=== PATIENT | male | born 1970 | race Caucasian/White ===

== ENCOUNTER 2017-09-06 16:49 | Emergency (ER) | payer OTHER ==
[2017-09-06] MEDS ORDERED: Morphine 4 MG/ML Syringe IM ONE (17:17)
[2017-09-06] MEDS ORDERED: Diphtheria,Pertussis(Acell),Tetanus Vaccine 0.5 ML Syringe IM ONE (17:17)
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
[2017-09-06] MEDS ORDERED: Silver Sulfadiazine 1% Crm 400 GM Jar TOP ONE (17:27)
== END 2017-09-06 18:22 | disposition home or self-care (01) ==
LOC: MW.ED 16:49
DX: T22.211A Burn of second degree of right forearm, initial encounter (principal); T21.23XA Burn of second degree of upper back, initial encounter; T65.891A Toxic effect of other specified substances, accidental (unintentional), initial encounter
CPT/HCPCS: 16020; 90471; 90715; 96372; 99283; A9270; J2270

== ENCOUNTER 2020-07-22 14:47 | Observation (INO) | payer OTHER ==
[2020-07-22] MEDS ORDERED: Ondansetron 4 MG/2 ML SDV IVPUSH ONE (15:49)
[2020-07-22] MEDS ORDERED: Ketorolac 15 MG/ML SDV IVPUSH ONE (15:49)
[2020-07-22] MEDS ORDERED: Lactated Ringers 1,000 ML IV ONE (15:49)
--- NOTE | 2020-07-22 15:53 | EDM.PDOC ---
ED HPI GENERAL MEDICAL PROBLEM - General Chief Complaint: Genitourinary Problem Stated Complaint: KIDNEY STONES Time Seen by Provider: 07/22/20 15:43 Source of Information: Reports: Patient History Limitations: Reports: No Limitations - History of Present Illness INITIAL COMMENTS - FREE TEXT/NARRATIVE: 49-year-old male with history of kidney stones and appendectomy presents with nonradiating right flank pain today. pain is sharp, close to the right posterior flank. Constant, nonradiating, no alleviating or exacerbating factors, severe. ROS: A 10-point review of systems, other than pertinent positives and negatives as stated per HPI, is otherwise negative Past medical history: No additional pertinent history Past Surgical history: No additional pertinent history Social history: No additional pertinent history Family history: No additional pertinent history PHYSICAL EXAM General: AOx4, GCS = 15, moderate distress HEENT: dry mucous membrane Neck: supple, no meningismus, no Kernig or Brudzinski Cardiac: S1S2 RRR Respiratory: CTAB, no crackles or rales, no wheezing Abdomen: Soft, nontender, no rebound or guarding, nondistended, no pulsatile mass. Back: right CVAT Musculoskeletal: NVI distally, no deformity Neuro: No focal deficits, right flank Pain Score (Numeric/FACES): 8 - Related Data Allergies Allergy/AdvReac Type Severity Reaction Status Date / Time No Known Allergies Allergy Verified 07/22/20 16:24 Home Meds: Home Meds . [No Known Home Meds] 07/22/20 [History] Past Medical History - Past Health History Medical/Surgical History: Denies Medical/Surgical History - Infectious Disease History Infectious Disease History: Reports: Chicken Pox Social & Family History - Family History Family Medical History: Noncontributory ED ROS GENERAL - Review of Systems Review Of Systems: Comprehensive ROS is negative, except as noted in HPI. ED EXAM, GENERAL - Physical Exam Exam: Not Obtained (see dictation) Course - Vital Signs Last Recorded V/S: Last Vital Signs Temp 97.1 F 07/22/20 16:21 Pulse 87 07/22/20 17:38 Resp 18 07/22/20 17:38 BP 182/114 H 07/22/20 17:38 Pulse Ox 98 07/22/20 17:38 - Orders/Labs/Meds Orders: Active Orders 24 hr Category Date Time Status HYDROmorphone [Dilaudid] Med 07/22/20 18:08 Once 1 mg IVPUSH ONETIME ONE Labs: Laboratory Tests 07/22/20 07/22/20 07/22/20 Range/Units 16:36 16:36 17:46 WBC 12.11 H (4.0-11.0) K/uL RBC 5.71 (4.50-5.90) M/uL Hgb 16.9 (13.0-17.0) g/dL Hct 48.7 (38.0-50.0) % MCV 85.3 (80.0-98.0) fL MCH 29.6 (27.0-32.0) pg MCHC 34.7 (31.0-37.0) g/dL RDW Std Deviation 40.2 (28.0-62.0) fl RDW Coeff of Luke 13 (11.0-15.0) % Plt Count 199 (150-400) K/uL MPV 9.10 (7.40-12.00) fL Neut % (Auto) 83.9 H (48.0-80.0) % Lymph % (Auto) 11.3 L (16.0-40.0) % Dare % (Auto) 4.4 (0.0-15.0) % Eos % (Auto) 0.2 (0.0-7.0) % Baso % (Auto) 0.2 (0.0-1.5) % Neut # (Auto) 10.2 H (1.4-5.7) K/uL Lymph # (Auto) 1.4 (0.6-2.4) K/uL Dare # (Auto) 0.5 (0.0-0.8) K/uL Eos # (Auto) 0.0 (0.0-0.7) K/uL Baso # (Auto) 0.0 (0.0-0.1) K/uL Nucleated RBC % 0.0 /100WBC Nucleated RBCs # 0 K/uL Sodium 139 (136-148) mmol/L Potassium 4.3 (3.5-5.1) mmol/L Chloride 102 (98-107) mmol/L Carbon Dioxide 29.6 (21.0-32.0) mmol/L BUN 17 (7.0-18.0) mg/dL Creatinine 1.3 (0.8-1.3) mg/dL Est Cr Clr Drug Dosing 76.83 mL/min Estimated GFR (MDRD) 58.4 ml/min Glucose 128 H (74-106) mg/dL Calcium 9.4 (8.5-10.1) mg/dL Total Bilirubin 0.9 (0.2-1.0) mg/dL AST 18 (15-37) IU/L ALT 33 (14-63) IU/L Alkaline Phosphatase 97 (46-116) U/L Total Protein 8.2 (6.4-8.2) g/dL Albumin 4.4 (3.4-5.0) g/dL Globulin 3.8 (2.6-4.0) g/dL Albumin/Globulin Ratio 1.2 (0.9-1.6) Lipase 83 (73-393) U/L Urine Color YELLOW Urine Appearance SLT CLOUDY Urine pH 8.5 H (5.0-8.0) Ur Specific Mylo 1.020 (1.001-1.035) Urine Protein TRACE H (NEGATIVE) mg/dL Urine Glucose (UA) NEGATIVE (NEGATIVE) mg/dL Urine Ketones 15 H (NEGATIVE) mg/dL Urine Occult Blood LARGE H (NEGATIVE) Urine Nitrite NEGATIVE (NEGATIVE) Urine Bilirubin NEGATIVE (NEGATIVE) Urine Urobilinogen 0.2 (<2.0) EU/dL Ur Leukocyte Esterase NEGATIVE (NEGATIVE) Urine RBC 12-15 (0-2/HPF) Urine WBC 1-2 (0-5/HPF) Ur Epithelial Cells RARE (NONE-FEW) Urine Bacteria RARE (NEGATIVE) Urine Opiates Screen (NEGATIVE) Ur Oxycodone Screen (NEGATIVE) Urine Methadone Screen (NEGATIVE) Ur Barbiturates Screen (NEGATIVE) Ur Phencyclidine Scrn (NEGATIVE) Ur Amphetamine Screen (NEGATIVE) U Methamphetamines Scrn (NEGATIVE) U Benzodiazepines Scrn (NEGATIVE) U Cocaine Metab Screen (NEGATIVE) U Marijuana (THC) Screen (NEGATIVE) 07/22/20 Range/Units 17:46 WBC (4.0-11.0) K/uL RBC (4.50-5.90) M/uL Hgb (13.0-17.0) g/dL Hct (38.0-50.0) % MCV (80.0-98.0) fL MCH (27.0-32.0) pg MCHC (31.0-37.0) g/dL RDW Std Deviation (28.0-62.0) fl RDW Coeff of Luke (11.0-15.0) % Plt Count (150-400) K/uL MPV (7.40-12.00) fL Neut % (Auto) (48.0-80.0) % Lymph % (Auto) (16.0-40.0) % Dare % (Auto) (0.0-15.0) % Eos % (Auto) (0.0-7.0) % Baso % (Auto) (0.0-1.5) % Neut # (Auto) (1.4-5.7) K/uL Lymph # (Auto) (0.6-2.4) K/uL Dare # (Auto) (0.0-0.8) K/uL Eos # (Auto) (0.0-0.7) K/uL Baso # (Auto) (0.0-0.1) K/uL Nucleated RBC % /100WBC Nucleated RBCs # K/uL Sodium (136-148) mmol/L Potassium (3.5-5.1) mmol/L Chloride (98-107) mmol/L Carbon Dioxide (21.0-32.0) mmol/L BUN (7.0-18.0) mg/dL Creatinine (0.8-1.3) mg/dL Est Cr Clr Drug Dosing mL/min Estimated GFR (MDRD) ml/min Glucose (74-106) mg/dL Calcium (8.5-10.1) mg/dL Total Bilirubin (0.2-1.0) mg/dL AST (15-37) IU/L ALT (14-63) IU/L Alkaline Phosphatase (46-116) U/L Total Protein (6.4-8.2) g/dL Albumin (3.4-5.0) g/dL Globulin (2.6-4.0) g/dL Albumin/Globulin Ratio (0.9-1.6) Lipase (73-393) U/L Urine Color Urine Appearance Urine pH (5.0-8.0) Ur Specific Mylo (1.001-1.035) Urine Protein (NEGATIVE) mg/dL Urine Glucose (UA) (NEGATIVE) mg/dL Urine Ketones (NEGATIVE) mg/dL Urine Occult Blood (NEGATIVE) Urine Nitrite (NEGATIVE) Urine Bilirubin (NEGATIVE) Urine Urobilinogen (<2.0) EU/dL Ur Leukocyte Esterase (NEGATIVE) Urine RBC (0-2/HPF) Urine WBC (0-5/HPF) Ur Epithelial Cells (NONE-FEW) Urine Bacteria (NEGATIVE) Urine Opiates Screen NEGATIVE (NEGATIVE) Ur Oxycodone Screen NEGATIVE (NEGATIVE) Urine Methadone Screen NEGATIVE (NEGATIVE) Ur Barbiturates Screen NEGATIVE (NEGATIVE) Ur Phencyclidine Scrn NEGATIVE (NEGATIVE) Ur Amphetamine Screen NEGATIVE (NEGATIVE) U Methamphetamines Scrn NEGATIVE (NEGATIVE) U Benzodiazepines Scrn NEGATIVE (NEGATIVE) U Cocaine Metab Screen NEGATIVE (NEGATIVE) U Marijuana (THC) Screen NEGATIVE (NEGATIVE) Meds: Medications Discontinued Medications Generic Name Dose Route Start Last Admin Trade Name Freq PRN Reason Stop Dose Admin Lactated Ringer's 1,000 mls @ 999 mls/hr 07/22/20 15:49 07/22/20 16:27 Ringers, Lactated IV 07/22/20 16:49 999 mls/hr .BOLUS ONE Administration Ketorolac Tromethamine 15 mg 07/22/20 15:49 07/22/20 16:27 Toradol IVPUSH 07/22/20 15:50 15 mg ONETIME ONE Administration Morphine Sulfate 4 mg 07/22/20 17:29 07/22/20 17:36 Morphine IVPUSH 07/22/20 17:30 4 mg ONETIME ONE Administration Ondansetron HCl 4 mg 07/22/20 15:49 07/22/20 16:28 Zofran IVPUSH 07/22/20 15:50 4 mg ONETIME ONE Administration - Re-Assessments/Exams Free Text/Narrative Re-Assessment/Exam: 07/22/20 15:52 Ordered IV fluids, Toradol, Zofran. 07/22/20 18:08 Pain is unchanged despite IV medications, will re-dose pain meds with IV Dilaudid. Paging urology Dr. Mansfield. 07/22/20 18:[address] Mansfield, he will see the patient tomorrow. Discussed with Dr. Raymond, who agrees to admit patient. The hospitalist's documentation supersedes all other documentation on this patient with regard to any conflicts or discrepancies from this point forward. Any emergency conditions have been treated to the ability of the ED prior to admission. Departure - Departure Time of Disposition: 18:09 Disposition: Refer to Observation Condition: Fair Clinical Impression: Ureteral calculus, right - Discharge Information *PRESCRIPTION DRUG MONITORING PROGRAM REVIEWED*: Not Applicable *COPY OF PRESCRIPTION DRUG MONITORING REPORT IN PATIENT ALENA: Not Applicable Referrals: Nito Preston MD [Primary Care Provider] - Forms: ED Department Discharge Sepsis Event Note (ED) - Focused Exam Vital Signs: Vital Signs Temp Pulse Resp BP Pulse Ox 07/22/20 17:38 87 18 182/114 H 98 07/22/20 16:21 97.1 F 66 18 98 - My Orders Last 24 Hours: My Active Orders 07/22/20 18:08 HYDROmorphone [Dilaudid] 1 mg IVPUSH ONETIME ONE - Assessment/Plan Last 24 Hours: My Active Orders 07/22/20 18:08 HYDROmorphone [Dilaudid] 1 mg IVPUSH ONETIME ONE
--- NOTE | 2020-07-22 16:48 | CT ---
CT abdomen and pelvis Technique: Multiple axial sections were obtained from above the dome of the diaphragm inferiorly through the pubic symphysis. Intravenous and oral contrast not utilized. Comparison: No previous study. Findings: Visualized lung bases show nothing acute. Noncontrast liver shows no focal abnormality. Spleen appears within normal limits. Adrenal glands show no nodule. Right collecting system and right ureter are dilated. These findings are caused by a distal obstructing ureteral stone measuring about 6 mm. This occurs approximately 2.5 cm from the UVJ. Stone is noted within the left renal pelvis measuring 1.0 cm in size. This is in good location to cause intermittent obstruction. Small nonobstructing calculus is seen within the right kidney. No other abnormal calcifications are noted. Pancreas is normal. Gallbladder contains no calcified gallstones. Aorta shows no aneurysm with no retroperitoneal adenopathy or mesenteric abnormalities are seen. Fat-containing umbilical hernia is noted. No pelvic mass or adenopathy is seen. No free fluid or inflammatory change is appreciated. Appendix not visualized with certainty. Bone window settings were reviewed which shows mild scattered degenerative change within the spine. No acute osseous finding is appreciated. Impression: 1. Right-sided hydronephrosis and hydroureter caused by a 6 mm obstructing the distal right ureter occurring approximately 2.5 cm proximal to the UVJ. 2. 1.0 cm stone within the left renal pelvis which could cause intermittent obstruction. 3. Small nonobstructing stone within right kidney. 4. Other findings as noted above which are believed to be incidental and of no acute significance. Diagnostic code #3 This report was dictated in MDT
[2020-07-22 17:05] LABS: CARBON DIOXIDE,CO2 29.6 mmol/L (21.0-32.0); POTASSIUM,K 4.3 mmol/L (3.5-5.1)
[2020-07-22] MEDS ORDERED: Morphine 4 MG/ML Syringe IVPUSH ONE (17:29)
[2020-07-22] MEDS ORDERED: HYDROmorphone 1 MG/ML Syringe IVPUSH ONE (18:08)
[2020-07-22] MEDS ORDERED: Ibuprofen 400 MG Tab PO PRN (21:56)
[2020-07-22] MEDS: HYDROmorphone 2 MG/ML Syringe IVPUSH PRN (22:30)
--- NOTE | 2020-07-22 23:40 | PCM.HP.2 ---
H&P History of Present Illness - General Date of Service: 07/22/20 Admit Problem/Dx: Admission Diagnosis/Problem Admission Diagnosis/Problem Ureteric stone - History of Present Illness Initial Comments - Free Text/Narative: 49 yo male with pmh of kidney stones who presents with right flank pain. He denies any fever, shills, or shortness of breath. CT scan of abdomen reported 6mm right ureter stone. There was 1cm left stone in renal pelvis. Dr. Mansfield was consulted in the ED. right flank Pain Score (Numeric/FACES): 8 - Related Data Allergies/Adverse Reactions: Allergies Allergy/AdvReac Type Severity Reaction Status Date / Time No Known Allergies Allergy Verified 07/23/20 00:19 Home Medications: Home Meds . [No Known Home Meds] 07/22/20 [History] Past Medical History - Past Health History Medical/Surgical History: Denies Medical/Surgical History Genitourinary History: Reports: Renal Calculus - Infectious Disease History Infectious Disease History: Reports: Chicken Pox - Past Surgical History GI Surgical History: Reports: Appendectomy Musculoskeletal Surgical History: Reports: Other (See Below) Other Musculoskeletal Surgeries/Procedures:: Bilateral Ankles, Tumors removed off back Social & Family History - Family History Family Medical History: Noncontributory - Tobacco Use Smoking Status *Q: Never Smoker - Recreational Drug Use Recreational Drug Use: No H&P Review of Systems - Review of Systems: Review Of Systems: Comprehensive ROS is negative, except as noted in HPI. Exam - Exam Exam: See Below - Vital Signs Vital Signs: Last Vital Signs Temp 36.2 C 07/22/20 16:21 Pulse 81 07/22/20 19:45 Resp 18 07/22/20 19:45 BP 166/102 H 07/22/20 19:45 Pulse Ox 97 07/22/20 19:45 Weight: 145.15 kg - Exam General: Alert, Oriented HEENT: Mucosa Moist & Tracy Lungs: Clear to Auscultation, Normal Respiratory Effort Cardiovascular: Regular Rate, Regular Rhythm GI/Abdominal Exam: Normal Bowel Sounds, Soft, Non-Tender Back Exam: CVA Tenderness (R) Extremities: Non-Tender, No Pedal Edema Skin: Warm, Dry, Intact Neurological: No: Focal Deficit - Patient Data Lab Results Last 24 hrs: Laboratory Results - last 24 hr 07/22/20 07/22/20 07/22/20 Range/Units 16:36 16:36 17:46 WBC 12.11 H (4.0-11.0) K/uL RBC 5.71 (4.50-5.90) M/uL Hgb 16.9 (13.0-17.0) g/dL Hct 48.7 (38.0-50.0) % MCV 85.3 (80.0-98.0) fL MCH 29.6 (27.0-32.0) pg MCHC 34.7 (31.0-37.0) g/dL RDW Std Deviation 40.2 (28.0-62.0) fl RDW Coeff of Luke 13 (11.0-15.0) % Plt Count 199 (150-400) K/uL MPV 9.10 (7.40-12.00) fL Neut % (Auto) 83.9 H (48.0-80.0) % Lymph % (Auto) 11.3 L (16.0-40.0) % [place] % (Auto) 4.4 (0.0-15.0) % Eos % (Auto) 0.2 (0.0-7.0) % Baso % (Auto) 0.2 (0.0-1.5) % Neut # (Auto) 10.2 H (1.4-5.7) K/uL Lymph # (Auto) 1.4 (0.6-2.4) K/uL [place] # (Auto) 0.5 (0.0-0.8) K/uL Eos # (Auto) 0.0 (0.0-0.7) K/uL Baso # (Auto) 0.0 (0.0-0.1) K/uL Nucleated RBC % 0.0 /100WBC Nucleated RBCs # 0 K/uL Sodium 139 (136-148) mmol/L Potassium 4.3 (3.5-5.1) mmol/L Chloride 102 (98-107) mmol/L Carbon Dioxide 29.6 (21.0-32.0) mmol/L BUN 17 (7.0-18.0) mg/dL Creatinine 1.3 (0.8-1.3) mg/dL Est Cr Clr Drug Dosing 76.83 mL/min Estimated GFR (MDRD) 58.4 ml/min Glucose 128 H (74-106) mg/dL Calcium 9.4 (8.5-10.1) mg/dL Total Bilirubin 0.9 (0.2-1.0) mg/dL AST 18 (15-37) IU/L ALT 33 (14-63) IU/L Alkaline Phosphatase 97 (46-116) U/L Total Protein 8.2 (6.4-8.2) g/dL Albumin 4.4 (3.4-5.0) g/dL Globulin 3.8 (2.6-4.0) g/dL Albumin/Globulin Ratio 1.2 (0.9-1.6) Lipase 83 (73-393) U/L Urine Color YELLOW Urine Appearance SLT CLOUDY Urine pH 8.5 H (5.0-8.0) Ur Specific [place] 1.020 (1.001-1.035) Urine Protein TRACE H (NEGATIVE) mg/dL Urine Glucose (UA) NEGATIVE (NEGATIVE) mg/dL Urine Ketones 15 H (NEGATIVE) mg/dL Urine Occult Blood LARGE H (NEGATIVE) Urine Nitrite NEGATIVE (NEGATIVE) Urine Bilirubin NEGATIVE (NEGATIVE) Urine Urobilinogen 0.2 (<2.0) EU/dL Ur Leukocyte Esterase NEGATIVE (NEGATIVE) Urine RBC 12-15 (0-2/HPF) Urine WBC 1-2 (0-5/HPF) Ur Epithelial Cells RARE (NONE-FEW) Urine Bacteria RARE (NEGATIVE) Urine Opiates Screen (NEGATIVE) Ur Oxycodone Screen (NEGATIVE) Urine Methadone Screen (NEGATIVE) Ur Barbiturates Screen (NEGATIVE) Ur Phencyclidine Scrn (NEGATIVE) Ur Amphetamine Screen (NEGATIVE) U Methamphetamines Scrn (NEGATIVE) U Benzodiazepines Scrn (NEGATIVE) U Cocaine Metab Screen (NEGATIVE) U Marijuana (THC) Screen (NEGATIVE) SARS-CoV-2 RNA (REENA) (NEGATIVE) 07/22/20 07/22/20 Range/Units 17:46 18:41 WBC (4.0-11.0) K/uL RBC (4.50-5.90) M/uL Hgb (13.0-17.0) g/dL Hct (38.0-50.0) % MCV (80.0-98.0) fL MCH (27.0-32.0) pg MCHC (31.0-37.0) g/dL RDW Std Deviation (28.0-62.0) fl RDW Coeff of Luke (11.0-15.0) % Plt Count (150-400) K/uL MPV (7.40-12.00) fL Neut % (Auto) (48.0-80.0) % Lymph % (Auto) (16.0-40.0) % [place] % (Auto) (0.0-15.0) % Eos % (Auto) (0.0-7.0) % Baso % (Auto) (0.0-1.5) % Neut # (Auto) (1.4-5.7) K/uL Lymph # (Auto) (0.6-2.4) K/uL [place] # (Auto) (0.0-0.8) K/uL Eos # (Auto) (0.0-0.7) K/uL Baso # (Auto) (0.0-0.1) K/uL Nucleated RBC % /100WBC Nucleated RBCs # K/uL Sodium (136-148) mmol/L Potassium (3.5-5.1) mmol/L Chloride (98-107) mmol/L Carbon Dioxide (21.0-32.0) mmol/L BUN (7.0-18.0) mg/dL Creatinine (0.8-1.3) mg/dL Est Cr Clr Drug Dosing mL/min Estimated GFR (MDRD) ml/min Glucose (74-106) mg/dL Calcium (8.5-10.1) mg/dL Total Bilirubin (0.2-1.0) mg/dL AST (15-37) IU/L ALT (14-63) IU/L Alkaline Phosphatase (46-116) U/L Total Protein (6.4-8.2) g/dL Albumin (3.4-5.0) g/dL Globulin (2.6-4.0) g/dL Albumin/Globulin Ratio (0.9-1.6) Lipase (73-393) U/L Urine Color Urine Appearance Urine pH (5.0-8.0) Ur Specific [place] (1.001-1.035) Urine Protein (NEGATIVE) mg/dL Urine Glucose (UA) (NEGATIVE) mg/dL Urine Ketones (NEGATIVE) mg/dL Urine Occult Blood (NEGATIVE) Urine Nitrite (NEGATIVE) Urine Bilirubin (NEGATIVE) Urine Urobilinogen (<2.0) EU/dL Ur Leukocyte Esterase (NEGATIVE) Urine RBC (0-2/HPF) Urine WBC (0-5/HPF) Ur Epithelial Cells (NONE-FEW) Urine Bacteria (NEGATIVE) Urine Opiates Screen NEGATIVE (NEGATIVE) Ur Oxycodone Screen NEGATIVE (NEGATIVE) Urine Methadone Screen NEGATIVE (NEGATIVE) Ur Barbiturates Screen NEGATIVE (NEGATIVE) Ur Phencyclidine Scrn NEGATIVE (NEGATIVE) Ur Amphetamine Screen NEGATIVE (NEGATIVE) U Methamphetamines Scrn NEGATIVE (NEGATIVE) U Benzodiazepines Scrn NEGATIVE (NEGATIVE) U Cocaine Metab Screen NEGATIVE (NEGATIVE) U Marijuana (THC) Screen NEGATIVE (NEGATIVE) SARS-CoV-2 RNA (REENA) NEGATIVE (NEGATIVE) Result Diagrams: 07/23/20 05:08 07/23/20 05:08 Sepsis Event Note - Evaluation Sepsis Screening Result: No Definite Risk - Focused Exam Vital Signs: Vital Signs Temp Pulse Resp BP Pulse Ox 07/22/20 19:45 81 18 166/102 H 97 07/22/20 17:38 87 18 182/114 H 98 07/22/20 16:21 36.2 C 66 18 98 Problem List Initiated/Reviewed/Updated: Yes Orders Last 24hrs: Active Orders 24 hr Category Date Time Status Admission Status [Patient Status] [ADT] Stat ADT 07/22/20 18:13 Active Antiembolic Devices [RC] PER UNIT ROUTINE Care 07/22/20 23:37 Ordered Notify Provider Consults [RC] ASDIRECTED Care 07/22/20 23:30 Ordered Oxygen Therapy [RC] PRN Care 07/22/20 23:36 Ordered Up ad Simin [RC] ASDIRECTED Care 07/22/20 23:36 Ordered VTE/DVT Education [RC] PER UNIT ROUTINE Care 07/22/20 23:36 Ordered Vital Signs [RC] Q4H Care 07/22/20 23:36 Ordered Consult to Physician [CONS] Urgent Cons 07/22/20 23:30 Ordered NPO After Midnight [Nothing per Oral After Midnight Diet 07/23/20 Breakfast Active Diet] [DIET] BASIC METABOLIC PANEL,BMP [CHEM] AM Lab 07/23/20 05:11 Ordered CBC WITH AUTO DIFF [HEME] AM Lab 07/23/20 05:11 Ordered HYDROmorphone [Dilaudid] Med 07/22/20 21:59 Active 1 mg IVPUSH Q3H PRN Ibuprofen [Motrin] Med 07/22/20 21:56 Active 400 mg PO Q6H PRN Sequential Compression Device [OM.PC] Per Unit Routine Oth 07/22/20 23:36 Ordered Resuscitation Status Routine Resus Stat 07/22/20 23:36 Ordered Medication Orders Hydromorphone HCl (Dilaudid) 1 mg IVPUSH Q3H PRN PRN Reason: Pain Last Admin: 07/22/20 22:30 Dose: 1 mg Documented by: CHRISTINE Ibuprofen (Motrin) 400 mg PO Q6H PRN PRN Reason: Pain Assessment/Plan Comment:: 49 yo male admitted for pain management or right kidney stone overnight. Dr. Mansfield has been consulted. Dr. Mansfield perform right uteroscopy with lithotripsy and then discharged the patient.
[2020-07-23] MEDS: HYDROmorphone 2 MG/ML Syringe IVPUSH PRN ×2 (02:17→05:18)
[2020-07-23 06:38] LABS: CARBON DIOXIDE,CO2 27.4 mmol/L (21.0-32.0); POTASSIUM,K 3.7 mmol/L (3.5-5.1)
[2020-07-23] MEDS ORDERED: HYDROmorphone 1 MG/ML Syringe IVPUSH PRN (07:45)
[2020-07-23] MEDS ORDERED: Midazolam 1 MG/ML 2 ML SDV ONE (09:38)
[2020-07-23] MEDS ORDERED: fentaNYL 250 MCG/5 ML SDV ONE (09:38)
[2020-07-23] MEDS ORDERED: Propofol 200 MG/20 ML SDV ONE (09:38)
[2020-07-23] MEDS ORDERED: Ondansetron 4 MG/2 ML SDV ONE (09:40)
[2020-07-23] MEDS ORDERED: Dexamethasone 4 MG/ML 5 ML MDV ONE (09:40)
--- NOTE | 2020-07-23 09:41 | PCM.PREANE ---
Preanesthetic Assessment - Anesthesia/Transfusion/Family Hx Anesthesia History: Prior Anesthesia Without Reaction Family History of Anesthesia Reaction: No Transfusion History: No Prior Transfusion(s) - Review of Systems General: No Symptoms Pulmonary: No Symptoms Cardiovascular: No Symptoms Gastrointestinal: Abdominal Pain Neurological: No Symptoms Other: Reports: None - Physical Assessment NPO Status Date: 07/22/20 Vital Signs: Last Vital Signs Temp 98.5 F 07/23/20 03:36 Pulse 67 07/23/20 03:36 Resp 20 07/23/20 03:36 BP 136/83 07/23/20 03:36 Pulse Ox 95 07/23/20 03:36 Height: 6 ft 1 in Weight: 105.642 kg ASA Class: 2 Mental Status: Alert & Oriented x3 Airway Class: Mallampati = 2 Dentition: Reports: Normal Dentition ROM/Head Extension: Full Lungs: Clear to Auscultation, Normal Respiratory Effort Cardiovascular: Regular Rate, Regular Rhythm - Lab Values: Laboratory Last Values WBC 10.67 K/uL (4.0-11.0) 07/23/20 05:08 RBC 5.24 M/uL (4.50-5.90) 07/23/20 05:08 Hgb 15.2 g/dL (13.0-17.0) 07/23/20 05:08 Hct 45.2 % (38.0-50.0) 07/23/20 05:08 MCV 86.3 fL (80.0-98.0) 07/23/20 05:08 MCH 29.0 pg (27.0-32.0) 07/23/20 05:08 MCHC 33.6 g/dL (31.0-37.0) 07/23/20 05:08 RDW Std Deviation 40.9 fl (28.0-62.0) 07/23/20 05:08 RDW Coeff of Luke 13 % (11.0-15.0) 07/23/20 05:08 Plt Count 211 K/uL (150-400) 07/23/20 05:08 MPV 9.40 fL (7.40-12.00) 07/23/20 05:08 Neut % (Auto) 72.0 % (48.0-80.0) 07/23/20 05:08 Lymph % (Auto) 16.9 % (16.0-40.0) 07/23/20 05:08 [place] % (Auto) 10.7 % (0.0-15.0) 07/23/20 05:08 Eos % (Auto) 0.3 % (0.0-7.0) 07/23/20 05:08 Baso % (Auto) 0.1 % (0.0-1.5) 07/23/20 05:08 Neut # (Auto) 7.7 K/uL (1.4-5.7) H 07/23/20 05:08 Lymph # (Auto) 1.8 K/uL (0.6-2.4) 07/23/20 05:08 [place] # (Auto) 1.1 K/uL (0.0-0.8) H 07/23/20 05:08 Eos # (Auto) 0.0 K/uL (0.0-0.7) 07/23/20 05:08 Baso # (Auto) 0.0 K/uL (0.0-0.1) 07/23/20 05:08 Nucleated RBC % 0.0 /100WBC 07/23/20 05:08 Nucleated RBCs # 0 K/uL 07/23/20 05:08 Sodium 139 mmol/L (136-148) 07/23/20 05:08 Potassium 3.7 mmol/L (3.5-5.1) 07/23/20 05:08 Chloride 104 mmol/L (98-107) 07/23/20 05:08 Carbon Dioxide 27.4 mmol/L (21.0-32.0) 07/23/20 05:08 BUN 20 mg/dL (7.0-18.0) H 07/23/20 05:08 Creatinine 1.5 mg/dL (0.8-1.3) H 07/23/20 05:08 Est Cr Clr Drug Dosing 66.58 mL/min 07/23/20 05:08 Estimated GFR (MDRD) 49.5 ml/min 07/23/20 05:08 Glucose 103 mg/dL (74-106) 07/23/20 05:08 Calcium 8.3 mg/dL (8.5-10.1) L 07/23/20 05:08 Total Bilirubin 0.9 mg/dL (0.2-1.0) 07/22/20 16:36 AST 18 IU/L (15-37) 07/22/20 16:36 ALT 33 IU/L (14-63) 07/22/20 16:36 Alkaline Phosphatase 97 U/L (46-116) 07/22/20 16:36 Total Protein 8.2 g/dL (6.4-8.2) 07/22/20 16:36 Albumin 4.4 g/dL (3.4-5.0) 07/22/20 16:36 Globulin 3.8 g/dL (2.6-4.0) 07/22/20 16:36 Albumin/Globulin Ratio 1.2 (0.9-1.6) 07/22/20 16:36 Lipase 83 U/L (73-393) 07/22/20 16:36 Urine Color YELLOW 07/22/20 17:46 Urine Appearance SLT CLOUDY 07/22/20 17:46 Urine pH 8.5 (5.0-8.0) H 07/22/20 17:46 Ur Specific [place] 1.020 (1.001-1.035) 07/22/20 17:46 Urine Protein TRACE mg/dL (NEGATIVE) H 07/22/20 17:46 Urine Glucose (UA) NEGATIVE mg/dL (NEGATIVE) 07/22/20 17:46 Urine Ketones 15 mg/dL (NEGATIVE) H 07/22/20 17:46 Urine Occult Blood LARGE (NEGATIVE) H 07/22/20 17:46 Urine Nitrite NEGATIVE (NEGATIVE) 07/22/20 17:46 Urine Bilirubin NEGATIVE (NEGATIVE) 07/22/20 17:46 Urine Urobilinogen 0.2 EU/dL (<2.0) 07/22/20 17:46 Ur Leukocyte Esterase NEGATIVE (NEGATIVE) 07/22/20 17:46 Urine RBC 12-15 (0-2/HPF) 07/22/20 17:46 Urine WBC 1-2 (0-5/HPF) 07/22/20 17:46 Ur Epithelial Cells RARE (NONE-FEW) 07/22/20 17:46 Urine Bacteria RARE (NEGATIVE) 07/22/20 17:46 Urine Opiates Screen NEGATIVE (NEGATIVE) 07/22/20 17:46 Ur Oxycodone Screen NEGATIVE (NEGATIVE) 07/22/20 17:46 Urine Methadone Screen NEGATIVE (NEGATIVE) 07/22/20 17:46 Ur Barbiturates Screen NEGATIVE (NEGATIVE) 07/22/20 17:46 Ur Phencyclidine Scrn NEGATIVE (NEGATIVE) 07/22/20 17:46 Ur Amphetamine Screen NEGATIVE (NEGATIVE) 07/22/20 17:46 U Methamphetamines Scrn NEGATIVE (NEGATIVE) 07/22/20 17:46 U Benzodiazepines Scrn NEGATIVE (NEGATIVE) 07/22/20 17:46 U Cocaine Metab Screen NEGATIVE (NEGATIVE) 07/22/20 17:46 U Marijuana (THC) Screen NEGATIVE (NEGATIVE) 07/22/20 17:46 SARS-CoV-2 RNA (REENA) NEGATIVE (NEGATIVE) 07/22/20 18:41 - Allergies Allergies/Adverse Reactions: Allergies Allergy/AdvReac Type Severity Reaction Status Date / Time No Known Allergies Allergy Verified 07/23/20 00:19 - Blood Blood Available: No - Anesthesia Plan Pre-Op Medication Ordered: None - Acknowledgements Anesthesia Type Planned: General Anesthesia Pt an Appropriate Candidate for the Planned Anesthesia: Yes Alternatives and Risks of Anesthesia Discussed w Pt/Guardian: Yes Pt/Guardian Understands and Agrees with Anesthesia Plan: Yes Additional Comments: APL: full gutierrez PLAN: ga/lma PreAnesthesia Questionnaire - Past Health History Medical/Surgical History: Denies Medical/Surgical History Genitourinary History: Reports: Renal Calculus - Infectious Disease History Infectious Disease History: Reports: Chicken Pox - Past Surgical History GI Surgical History: Reports: Appendectomy Musculoskeletal Surgical History: Reports: Other (See Below) Other Musculoskeletal Surgeries/Procedures:: Bilateral Ankles, Tumors removed off back - SUBSTANCE USE Smoking Status *Q: Never Smoker Recreational Drug Use History: No - HOME MEDS Home Medications: Home Meds . [No Known Home Meds] 07/22/20 [History] - CURRENT (IN HOUSE) MEDS Current Meds: Current Medications Hydromorphone HCl (Dilaudid) 1 mg IVPUSH Q3H PRN PRN Reason: Pain Last Admin: 07/23/20 08:35 Dose: 1 mg Documented by: Discontinued Medications Hydromorphone HCl (Dilaudid) 1 mg IVPUSH ONETIME ONE Stop: 07/22/20 18:09 Last Admin: 07/22/20 18:42 Dose: 1 mg Documented by: Hydromorphone HCl (Dilaudid) 1 mg IVPUSH Q3H PRN PRN Reason: Pain Last Admin: 07/23/20 05:18 Dose: 1 mg Documented by: Lactated Ringer's (Ringers, Lactated) 1,000 mls @ 999 mls/hr IV .BOLUS ONE Stop: 07/22/20 16:49 Last Admin: 07/22/20 16:27 Dose: 999 mls/hr Documented by: Ibuprofen (Motrin) 400 mg PO Q6H PRN PRN Reason: Pain Ketorolac Tromethamine (Toradol) 15 mg IVPUSH ONETIME ONE Stop: 07/22/20 15:50 Last Admin: 07/22/20 16:27 Dose: 15 mg Documented by: Morphine Sulfate (Morphine) 4 mg IVPUSH ONETIME ONE Stop: 07/22/20 17:30 Last Admin: 07/22/20 17:36 Dose: 4 mg Documented by: Ondansetron HCl (Zofran) 4 mg IVPUSH ONETIME ONE Stop: 07/22/20 15:50 Last Admin: 07/22/20 16:28 Dose: 4 mg Documented by:
[2020-07-23] MEDS ORDERED: Iopamidol 408 MG/ML 20 ML SDV ONE (09:43)
[2020-07-23] MEDS ORDERED: Sodium Chloride 0.9% 20 ML ONE (09:49)
[2020-07-23] MEDS ORDERED: ceFAZolin 1 GM Vial ONE (09:55)
[2020-07-23] MEDS ORDERED: ePHEDrine 50 MG/ML SDV ONE (10:32)
[2020-07-23] MEDS ORDERED: Glycopyrrolate 0.2 MG/ML SDV ONE (10:34)
--- NOTE | 2020-07-23 11:26 | PCM.POSTAN ---
POST ANESTHESIA ASSESSMENT - MENTAL STATUS Mental Status: Alert, Oriented - VITAL SIGNS Vital Signs: Last Vital Signs Temp 36.4 C 07/23/20 10:47 Pulse 85 07/23/20 11:24 Resp 15 07/23/20 11:24 BP 120/79 07/23/20 11:24 Pulse Ox 92 L 07/23/20 11:24 - RESPIRATORY Respiratory Status: Respiratory Rate WNL, Airway Patent, O2 Saturation Stable - CARDIOVASCULAR CV Status: Pulse Rate WNL, Blood Pressure Stable - GASTROINTESTINAL GI Status: No Symptoms - PAIN Pain Score: 0 - POST OP HYDRATION Hydration Status: Adequate & Stable
--- NOTE | 2020-07-23 11:56 | CR ---
Abdomen: 2 views of the abdomen were obtained utilizing C-arm device. Study shows a ureteroscope in place. Ureteral catheter or guidewire is seen extending into the right ureter. Fluoroscopy time given as 4.1 seconds. Impression: 1. Procedural study as noted above. Diagnostic code #2 This report was dictated in MDT
--- NOTE | 2020-07-23 12:32 | OR ---
SURGEON: Jessie Mansfield M.D. DATE OF PROCEDURE: 07/23/2020 PREOPERATIVE DIAGNOSIS: Right lower ureteral stone. POSTOPERATIVE DIAGNOSIS: Right lower ureteral stone. OPERATIONS: Right ureteroscopy, laser lithotripsy, and stone removal. DESCRIPTION OF PROCEDURE: The patient was given general anesthesia. He was in dorsal lithotomy position. Prepped and draped in sterile drapes. Cystourethroscopy was done that was normal. A guidewire was advanced in the right ureter alongside the stone. The lower ureter was then dilated using the UroMax II balloon dilator to approximately 15-Kinyarwanda. The rigid ureteroscope was advanced in the right ureter. The stone was visualized, too big to take out in one piece, so the laser was used to break it up into multiple pieces. These were all removed with the exception of a few tiny pieces. With that done, the procedure was terminated, the guidewire was removed, the bladder was emptied, stone was submitted, and the patient was moved to the recovery room in good condition. JANINA / NAVEED /[id number]
--- NOTE | 2020-07-23 12:48 | CONS ---
DATE OF CONSULTATION: 07/23/2020 DATE OF : 1970 PRIMARY CARE PHYSICIAN: YOANNA PATEL MD HISTORY OF PRESENT ILLNESS: A 49-year-old. He presented to the emergency room with sudden onset of right flank pain. He had a history of urinary stones, so he kind of new what was happening. His UA showed microscopic hematuria. His CT scan showed a 7 mm right lower ureteral stone just proximal to the right UVJ. It also showed a 4 mm left UPJ stone. MEDICAL HISTORY: Urinary stones. SURGICAL HISTORY: Previous procedures for urinary stones. LABORATORY DATA: His lab work showed white blood count 12,000. UA is not suggestive of UTI. He is not febrile and his creatinine is 1.2. PHYSICAL EXAMINATION: GENERAL: He is alert. He is oriented. He is in pain. HEART: Normal sinus rhythm. LUNGS: Clear. ABDOMEN: Mild tenderness on the right side of the abdomen. Abdomen is soft otherwise. DIAGNOSIS: Right lower ureteral stone, 7 mm, and a left ureteropelvic junction/renal pelvis stone, 4 mm. PLAN: Right ureteroscopy with laser lithotripsy. He is agreeable for the left side later. JANINA / NAVEED /[id number]
== END 2020-07-23 15:45 | disposition home or self-care (01) ==
LOC: MW.ED 14:47 → MW.MS 18:13
PROVIDERS: ADMIT Internal Medicine; ATTEND Internal Medicine
DX: N20.1 Calculus of ureter (principal); Z01.812 Encounter for preprocedural laboratory examination; Z20.828 Contact with and (suspected) exposure to other viral communicable diseases; Z87.442 Personal history of urinary calculi
CPT/HCPCS: 00918; 36415; 74176; 74176-26; 76000; 76000-26; 80048; 80053; 80305-QW; 81001; 83690; 85025; 88300; 96361; 96374; 96375; 96376; 99284-25; C1769; G0378; J0690; J1100; J1170; J1885; J2001; J2250; J2270; J2405; J2704; J3010; J3490; J7120; Q9966; U0002

== ENCOUNTER 2021-01-31 18:34 | Emergency (ER) | payer OTHER ==
--- NOTE | 2021-01-31 18:47 | EDM.PDOC ---
ED HPI GENERAL MEDICAL PROBLEM - General Stated Complaint: BLOODY NOSE Time Seen by Provider: 01/31/21 18:44 Source of Information: Reports: Patient History Limitations: Reports: No Limitations - History of Present Illness INITIAL COMMENTS - FREE TEXT/NARRATIVE: 50-year-old male no past medical history no blood thinner use presents for right nare epistaxis for roughly 1 hour. Patient has never had a nosebleed in the past. Denies any other complaints. - Related Data Allergies Allergy/AdvReac Type Severity Reaction Status Date / Time No Known Allergies Allergy Verified 01/30/21 13:59 Home Meds: Home Meds Diclofenac Sodium 75 mg PO BID PRN 01/30/21 [History] Past Medical History - Past Health History Medical/Surgical History: Denies Medical/Surgical History HEENT History: Reports: Other (See Below) Other HEENT History: wears glasses Cardiovascular History: Reports: None Respiratory History: Reports: Sleep Apnea Other Respiratory History: does not use CPAP Gastrointestinal History: Reports: None Genitourinary History: Reports: Renal Calculus Musculoskeletal History: Reports: Arthritis, Fracture Other Musculoskeletal History: fx both ankles, hx fx ribs, finger, toe & collarbone Neurological History: Reports: None Psychiatric History: Reports: None Endocrine/Metabolic History: Reports: Obesity/BMI 30+ Hematologic History: Reports: None Immunologic History: Reports: None Oncologic (Cancer) History: Reports: None Dermatologic History: Reports: None - Infectious Disease History Infectious Disease History: Reports: Chicken Pox - Past Surgical History Head Surgeries/Procedures: Reports: None HEENT Surgical History: Reports: None Cardiovascular Surgical History: Reports: None Respiratory Surgical History: Reports: None GI Surgical History: Reports: Appendectomy Male Surgical History: Reports: Kidney Stone Extraction Endocrine Surgical History: Reports: None Neurological Surgical History: Reports: None Musculoskeletal Surgical History: Reports: Shoulder Surgery, Other (See Below) Other Musculoskeletal Surgeries/Procedures:: Bilateral Ankles, Tumors removed off back, right RTCR Oncologic Surgical History: Reports: None Dermatological Surgical History: Reports: None Social & Family History - Family History Family Medical History: No Pertinent Family History ED ROS GENERAL - Review of Systems Review Of Systems: Comprehensive ROS is negative, except as noted in HPI. ED EXAM, GENERAL - Physical Exam Exam: See Below Exam Limited By: No Limitations General Appearance: Alert, WD/WN, No Apparent Distress Nose: Other (heavy bleeding from R nare) Throat/Mouth: Normal Voice, No Airway Compromise Head: Atraumatic, Normocephalic Neck: Normal Inspection Respiratory/Chest: No Respiratory Distress, No Accessory Muscle Use Cardiovascular: Normal Peripheral Pulses Extremities: Normal Inspection Neurological: Alert, Normal Gait Psychiatric: Normal Affect, Normal Mood Skin Exam: Warm, Dry, Intact, Normal Color Course - Re-Assessments/Exams Free Text/Narrative Re-Assessment/Exam: 01/31/21 18:45 Anterior/posterior Rhino Rocket was placed in the right nare. Patient tolerated procedure well. Will discharge with ENT follow-up early next week. Patient instructed to come back to the emergency department if he is for what ever reason unable to follow-up with ENT Departure - Departure Time of Disposition: 18:46 Disposition: Home, Self-Care 01 Condition: Good Clinical Impression: Epistaxis - Discharge Information Instructions: Nosebleed, Adult Additional Instructions: You need to follow-up with an ENT doctor early next week to have this nasal packing removed. If you are unable to get in with an ENT doctor by Wednesday then you should come back to the emergency department so we can remove it. If you develop fevers or worsening pain in the area this can be a sign of infection and you should come back to the emergency department. Information for ENT in both [facility] as well as [facility] are provided below. Dr. Nahid Marin [facility], [address] [place] [phone] Clyde Hernandez [facility] [address] [place] [id number] The following information is given to patients seen in the emergency department who are being discharged to home. This information is to outline your options for follow-up care. We provide all patients seen in our emergency department with a follow-up referral. The need for follow-up, as well as the timing and circumstances, are variable depending upon the specifics of your emergency department visit. If you don't have a primary care physician on staff, we will provide you with a referral. We always advise you to contact your personal physician following an emergency department visit to inform them of the circumstance of the visit and for follow-up with them and/or the need for any referrals to a consulting specialist. The emergency department will also refer you to a specialist when appropriate. This referral assures that you have the opportunity for follow-up care with a specialist. All of these measure are taken in an effort to provide you with optimal care, which includes your follow-up. Under all circumstances we always encourage you to contact your private physician who remains a resource for coordinating your care. When calling for follow-up care, please make the office aware that this follow-up is from your recent emergency room visit. If for any reason you are refused follow-up, please contact the [facility] Emergency Department at and asked to speak to the emergency department charge nurse. Please follow up with your primary care physician. If you do not have a primary care physician, see below: [facility] [address] [place] [id number] [facility] [address] [place] [address] [facility] [address] [place] [id number]
== END 2021-01-31 19:20 | disposition home or self-care (01) ==
LOC: MW.ED 18:34
DX: R04.0 Epistaxis (principal)
CPT/HCPCS: 30901; 30903; 99282; 99283-25

== ENCOUNTER 2021-02-01 15:59 | Emergency (ER) | payer OTHER ==
--- NOTE | 2021-02-01 16:03 | EDM.PDOC ---
ED HPI GENERAL MEDICAL PROBLEM - General Stated Complaint: REMOVAL FROM NOSE Time Seen by Provider: 02/01/21 16:00 Source of Information: Reports: Patient History Limitations: Reports: No Limitations - History of Present Illness INITIAL COMMENTS - FREE TEXT/NARRATIVE: 50-year-old male presents for removal of Rhino Rocket. Rhino Rocket was placed roughly 24 hours ago in our emergency department. Patient states that he is having pain and tearing from the eye and he wants it out. No fevers, no continued epistaxis - Related Data Allergies Allergy/AdvReac Type Severity Reaction Status Date / Time No Known Allergies Allergy Verified 01/31/21 19:28 Home Meds: Home Meds Diclofenac Sodium 75 mg PO BID PRN 01/30/21 [History] Past Medical History - Past Health History Medical/Surgical History: Denies Medical/Surgical History HEENT History: Reports: Other (See Below) Other HEENT History: wears glasses Cardiovascular History: Reports: None Respiratory History: Reports: Sleep Apnea Other Respiratory History: does not use CPAP Gastrointestinal History: Reports: None Genitourinary History: Reports: Renal Calculus Musculoskeletal History: Reports: Arthritis, Fracture Other Musculoskeletal History: fx both ankles, hx fx ribs, finger, toe & collarbone Neurological History: Reports: None Psychiatric History: Reports: None Endocrine/Metabolic History: Reports: Obesity/BMI 30+ Hematologic History: Reports: None Immunologic History: Reports: None Oncologic (Cancer) History: Reports: None Dermatologic History: Reports: None - Infectious Disease History Infectious Disease History: Reports: Chicken Pox - Past Surgical History Head Surgeries/Procedures: Reports: None HEENT Surgical History: Reports: None Cardiovascular Surgical History: Reports: None Respiratory Surgical History: Reports: None GI Surgical History: Reports: Appendectomy Male Surgical History: Reports: Kidney Stone Extraction Endocrine Surgical History: Reports: None Neurological Surgical History: Reports: None Musculoskeletal Surgical History: Reports: Shoulder Surgery, Other (See Below) Other Musculoskeletal Surgeries/Procedures:: Bilateral Ankles, Tumors removed off back, right RTCR Oncologic Surgical History: Reports: None Dermatological Surgical History: Reports: None Social & Family History - Family History Family Medical History: No Pertinent Family History - Caffeine Use Caffeine Use: Reports: Coffee ED ROS GENERAL - Review of Systems Review Of Systems: Comprehensive ROS is negative, except as noted in HPI. ED EXAM, GENERAL - Physical Exam Exam: See Below Exam Limited By: No Limitations General Appearance: Alert, WD/WN, No Apparent Distress Ears: Hearing Grossly Normal Nose: Other (Nasal tampon in right nare) Throat/Mouth: Normal Voice, No Airway Compromise Head: Atraumatic, Normocephalic Neck: Normal Inspection Respiratory/Chest: No Respiratory Distress, No Accessory Muscle Use Cardiovascular: Normal Peripheral Pulses, Regular Rate, Rhythm Extremities: Normal Inspection Neurological: Alert Psychiatric: Normal Affect, Normal Mood Skin Exam: Warm, Dry, Intact, Normal Color Course - Re-Assessments/Exams Free Text/Narrative Re-Assessment/Exam: 02/01/21 16:10 Nasal tampon was removed without complication. Patient did not have repeat episodes of bleeding afterwards. Will discharge with ENT follow-up. Departure - Departure Time of Disposition: 16:10 Disposition: Home, Self-Care 01 Condition: Good Clinical Impression: Encounter for removal of nasal packing - Discharge Information Instructions: Nosebleed, Adult Referrals: Nito Preston MD [Primary Care Provider] - Additional Instructions: The following information is given to patients seen in the emergency department who are being discharged to home. This information is to outline your options for follow-up care. We provide all patients seen in our emergency department wi th a follow-up referral. The need for follow-up, as well as the timing and circumstances, are variable depending upon the specifics of your emergency department visit. If you don't have a primary care physician on staff, we will provide you with a referral. We always advise you to contact your personal physician following an emergency department visit to inform them of the circumstance of the visit and for follow-up with them and/or the need for any referrals to a consulting specialist. The emergency department will also refer you to a specialist when appropriate. This referral assures that you have the opportunity for follow-up care with a specialist. All of these measure are taken in an effort to provide you with optimal care, which includes your follow-up. Under all circumstances we always encourage you to contact your private physician who remains a resource for coordinating your care. When calling for follow-up care, please make the office aware that this follow-up is from your recent emergency room visit. If for any reason you are refused follow-up, please contact the [facility] Emergency Department at and asked to speak to the emergency department charge nurse. Please follow up with your primary care physician. If you do not have a primary care physician, see below: [facility] [address] [place] [address] [phone] [facility] [address] [place] [address] [id number] [facility] [address] [place] [id number]
== END 2021-02-01 16:25 | disposition home or self-care (01) ==
LOC: MW.ED 15:59
DX: Z48.00 Encounter for change or removal of nonsurgical wound dressing (principal); E66.9 Obesity, unspecified; Z68.41 Body mass index [BMI] 40.0-44.9, adult
CPT/HCPCS: 99281; 99282

== ENCOUNTER 2021-02-06 06:32 | Day surgery (SDC) | payer OTHER ==
[~2021-02-06 06:32] MED LIST: Lactated Ringers 1,000 ML IV SCH; Sodium Chloride 0.9% 10 ML SDV IV PRN; Sodium Chloride 0.9% 10 ML Syringe FLUSH PRN; Sodium Chloride 0.9% 2.5 ML Syringe FLUSH PRN; ceFAZolin 2 GM in Premix Bag 1 BAG IV ONE
[2021-02-06] MEDS ORDERED: Propofol 200 MG/20 ML SDV ONE (07:09)
--- NOTE | 2021-02-06 07:09 | PCM.PREANE ---
Preanesthetic Assessment - Anesthesia/Transfusion/Family Hx Anesthesia History: Prior Anesthesia Without Reaction Family History of Anesthesia Reaction: No Transfusion History: No Prior Transfusion(s) - Review of Systems General: No Symptoms Pulmonary: No Symptoms Cardiovascular: No Symptoms Gastrointestinal: No Symptoms Neurological: No Symptoms Other: Reports: None - Physical Assessment NPO Status Date: 02/06/21 NPO Status Time: 00:01 Height: 6 ft Weight: 320 lb ASA Class: 3 Mental Status: Alert & Oriented x3 Airway Class: Mallampati = 3 Dentition: Reports: Normal Dentition ROM/Head Extension: Limited/Partial Lungs: Clear to Auscultation, Normal Respiratory Effort Cardiovascular: Regular Rate, Regular Rhythm - Allergies Allergies/Adverse Reactions: Allergies Allergy/AdvReac Type Severity Reaction Status Date / Time No Known Allergies Allergy Verified 02/01/21 16:25 - Anesthesia Plan Pre-Op Medication Ordered: None - Acknowledgements Anesthesia Type Planned: General Anesthesia Pt an Appropriate Candidate for the Planned Anesthesia: Yes Alternatives and Risks of Anesthesia Discussed w Pt/Guardian: Yes Pt/Guardian Understands and Agrees with Anesthesia Plan: Yes Additional Comments: npo after mn no cv problems morbid obesity tob none etoh occ par no questions PreAnesthesia Questionnaire - Past Health History Medical/Surgical History: Denies Medical/Surgical History HEENT History: Reports: Other (See Below) Other HEENT History: wears glasses Cardiovascular History: Reports: None Respiratory History: Reports: Sleep Apnea Other Respiratory History: does not use CPAP Gastrointestinal History: Reports: None Genitourinary History: Reports: Renal Calculus Musculoskeletal History: Reports: Arthritis, Fracture Other Musculoskeletal History: fx both ankles, hx fx ribs, finger, toe & collarbone Neurological History: Reports: None Psychiatric History: Reports: None Endocrine/Metabolic History: Reports: Obesity/BMI 30+ Hematologic History: Reports: None Immunologic History: Reports: None Oncologic (Cancer) History: Reports: None Dermatologic History: Reports: None - Infectious Disease History Infectious Disease History: Reports: Chicken Pox - Past Surgical History Head Surgeries/Procedures: Reports: None HEENT Surgical History: Reports: None Cardiovascular Surgical History: Reports: None Respiratory Surgical History: Reports: None GI Surgical History: Reports: Appendectomy Male Surgical History: Reports: Kidney Stone Extraction Endocrine Surgical History: Reports: None Neurological Surgical History: Reports: None Musculoskeletal Surgical History: Reports: Shoulder Surgery, Other (See Below) Other Musculoskeletal Surgeries/Procedures:: Bilateral Ankles, Tumors removed off back, right RTCR Oncologic Surgical History: Reports: None Dermatological Surgical History: Reports: None - SUBSTANCE USE Tobacco Use Status *Q: Never Tobacco User - HOME MEDS Home Medications: Home Meds Diclofenac Sodium 75 mg PO BID PRN 01/30/21 [History] - CURRENT (IN HOUSE) MEDS Current Meds: Current Medications Lactated Ringer's (Ringers, Lactated) 1,000 mls @ 100 mls/hr IV ASDIRECTED JESSENIA Sodium Chloride (Sodium Chloride 0.9% 10 Ml Syringe) 10 ml FLUSH ASDIRECTED PRN PRN Reason: Keep Vein Open Sodium Chloride (Sodium Chloride 0.9% 2.5 Ml Syringe) 2.5 ml FLUSH ASDIRECTED PRN PRN Reason: Keep Vein Open Sodium Chloride (Sodium Chloride 0.9% 10 Ml Sdv) 10 ml IV ASDIRECTED PRN PRN Reason: IV Use Discontinued Medications Cefazolin Sodium/Dextrose 2 gm (/ Premix) 50 mls @ 100 mls/hr IV ONCALL ONE Stop: 02/06/21 06:29
[2021-02-06] MEDS ORDERED: Succinylcholine/Sod PF 100 MG/5 ML SYRINGE IV ONE ×3 (07:10→09:52)
[2021-02-06] MEDS ORDERED: fentaNYL 100 MCG/2 ML SDV ONE (07:10)
[2021-02-06] MEDS ORDERED: Midazolam 1 MG/ML 2 ML SDV ONE (07:10)
[2021-02-06] MEDS ORDERED: Dexamethasone 4 MG/ML 5 ML MDV ONE (07:11)
[2021-02-06] MEDS ORDERED: Ondansetron 4 MG/2 ML SDV ONE (07:11)
[2021-02-06] MEDS ORDERED: Famotidine 20 MG/2 ML SDV ONE (07:14)
--- NOTE | 2021-02-06 07:32 | PCM.PREANE ---
Preanesthetic Assessment - Anesthesia/Transfusion/Family Hx Anesthesia History: Prior Anesthesia Without Reaction Family History of Anesthesia Reaction: No Transfusion History: No Prior Transfusion(s) - Review of Systems General: No Symptoms Pulmonary: No Symptoms Cardiovascular: No Symptoms Gastrointestinal: No Symptoms Neurological: No Symptoms Other: Reports: None - Physical Assessment NPO Status Date: 02/06/21 NPO Status Time: 00:01 Vital Signs: Last Vital Signs Temp 97.3 F 02/06/21 07:09 Pulse 75 02/06/21 07:09 Resp 16 02/06/21 07:09 BP 160/97 H 02/06/21 07:09 Pulse Ox 95 02/06/21 07:09 Height: 6 ft Weight: 320 lb ASA Class: 2 Mental Status: Alert & Oriented x3 Airway Class: Mallampati = 2 Dentition: Reports: Normal Dentition ROM/Head Extension: Full Lungs: Clear to Auscultation, Normal Respiratory Effort Cardiovascular: Regular Rate, Regular Rhythm - Allergies Allergies/Adverse Reactions: Allergies Allergy/AdvReac Type Severity Reaction Status Date / Time No Known Allergies Allergy Verified 02/06/21 07:18 - Anesthesia Plan Pre-Op Medication Ordered: None - Acknowledgements Anesthesia Type Planned: General Anesthesia Pt an Appropriate Candidate for the Planned Anesthesia: Yes Alternatives and Risks of Anesthesia Discussed w Pt/Guardian: Yes Pt/Guardian Understands and Agrees with Anesthesia Plan: Yes Additional Comments: npo after mn tob 1/2 ppd etoh weekend vodka depression anxiety psoriasis obesity bmi 37 par no questions no cv problems PreAnesthesia Questionnaire - Past Health History Medical/Surgical History: Denies Medical/Surgical History HEENT History: Reports: Other (See Below) Other HEENT History: wears glasses Cardiovascular History: Reports: None Respiratory History: Reports: Sleep Apnea Other Respiratory History: does not use CPAP Gastrointestinal History: Reports: None Genitourinary History: Reports: Renal Calculus Musculoskeletal History: Reports: Arthritis, Fracture Other Musculoskeletal History: fx both ankles, hx fx ribs, finger, toe & collarbone Neurological History: Reports: None Psychiatric History: Reports: None Endocrine/Metabolic History: Reports: Obesity/BMI 30+ Hematologic History: Reports: None Immunologic History: Reports: None Oncologic (Cancer) History: Reports: None Dermatologic History: Reports: None - Infectious Disease History Infectious Disease History: Reports: Chicken Pox - Past Surgical History Head Surgeries/Procedures: Reports: None HEENT Surgical History: Reports: None Cardiovascular Surgical History: Reports: None Respiratory Surgical History: Reports: None GI Surgical History: Reports: Appendectomy Male Surgical History: Reports: Kidney Stone Extraction Endocrine Surgical History: Reports: None Neurological Surgical History: Reports: None Musculoskeletal Surgical History: Reports: Shoulder Surgery, Other (See Below) Other Musculoskeletal Surgeries/Procedures:: Bilateral Ankles, Tumors removed off back, right RTCR Oncologic Surgical History: Reports: None Dermatological Surgical History: Reports: None - SUBSTANCE USE Tobacco Use Status *Q: Never Tobacco User - HOME MEDS Home Medications: Home Meds Diclofenac Sodium 75 mg PO BID PRN 01/30/21 [History] - CURRENT (IN HOUSE) MEDS Current Meds: Current Medications Lactated Ringer's (Ringers, Lactated) 1,000 mls @ 100 mls/hr IV ASDIRECTED JESSENIA Last Admin: 02/06/21 07:08 Dose: 100 mls/hr Documented by: Sodium Chloride (Sodium Chloride 0.9% 10 Ml Syringe) 10 ml FLUSH ASDIRECTED PRN PRN Reason: Keep Vein Open Sodium Chloride (Sodium Chloride 0.9% 2.5 Ml Syringe) 2.5 ml FLUSH ASDIRECTED PRN PRN Reason: Keep Vein Open Sodium Chloride (Sodium Chloride 0.9% 10 Ml Sdv) 10 ml IV ASDIRECTED PRN PRN Reason: IV Use Discontinued Medications Dexamethasone (Dexamethasone 4 Mg/Ml 5 Ml Mdv) Confirm Administered Dose 20 mg .ROUTE .STK-MED ONE Stop: 02/06/21 07:12 Famotidine (Famotidine 20 Mg/2 Ml Sdv) Confirm Administered Dose 40 mg .ROUTE .STK-MED ONE Stop: 02/06/21 07:15 Fentanyl (Fentanyl 100 Mcg/2 Ml Sdv) Confirm Administered Dose 100 mcg .ROUTE .STK-MED ONE Stop: 02/06/21 07:11 Cefazolin Sodium/Dextrose 2 gm (/ Premix) 50 mls @ 100 mls/hr IV ONCALL ONE Stop: 02/06/21 06:29 Lidocaine HCl (Lidocaine 1% 5 Ml Sdv) Confirm Administered Dose 5 ml .ROUTE .STK-MED ONE Stop: 02/06/21 07:11 Midazolam HCl (Midazolam 1 Mg/Ml 2 Ml Sdv) Confirm Administered Dose 2 mg .ROUTE .STK-MED ONE Stop: 02/06/21 07:11 Ondansetron HCl (Ondansetron 4 Mg/2 Ml Sdv) Confirm Administered Dose 4 mg .ROUTE .STK-MED ONE Stop: 02/06/21 07:12 Propofol (Propofol 200 Mg/20 Ml Sdv) Confirm Administered Dose 200 mg .ROUTE .STK-MED ONE Stop: 02/06/21 07:10
[2021-02-06] MEDS ORDERED: Diclofenac Sodium 75 MG Tab.EC PO PRN (09:00)
--- NOTE | 2021-02-06 09:49 | PCM.POSTAN ---
POST ANESTHESIA ASSESSMENT - MENTAL STATUS Mental Status: Alert (no anesthetic problems), Oriented - VITAL SIGNS Vital Signs: Last Vital Signs Temp 96.8 F L 02/06/21 09:02 Pulse 96 02/06/21 09:18 Resp 12 02/06/21 09:18 BP 142/83 H 02/06/21 09:18 Pulse Ox 95 02/06/21 09:18 - RESPIRATORY Respiratory Status: Respiratory Rate WNL, Airway Patent, O2 Saturation Stable - CARDIOVASCULAR CV Status: Pulse Rate WNL, Blood Pressure Stable - GASTROINTESTINAL GI Status: No Symptoms - POST OP HYDRATION Hydration Status: Adequate & Stable
[2021-02-06] MEDS ORDERED: Ketorolac 30 MG/ML SDV ONE (10:06)
--- NOTE | 2021-02-06 11:40 | PCM48HPAN ---
Post Anesthesia Note - EVALUATION WITHIN 48HRS OF ANESTHETIC Vital Signs in Normal Range: Yes Patient Participated in Evaluation: Yes Respiratory Function Stable: Yes Airway Patent: Yes Cardiovascular Function Stable: Yes Hydration Status Stable: Yes Pain Control Satisfactory: Yes Nausea and Vomiting Control Satisfactory: Yes Mental Status Recovered: Yes Vital Signs: Last Vital Signs Temp 96.8 F L 02/06/21 09:02 Pulse 96 02/06/21 09:18 Resp 12 02/06/21 09:18 BP 142/83 H 02/06/21 09:18 Pulse Ox 95 02/06/21 09:18
--- NOTE | 2021-02-06 15:49 | OR ---
SURGEON: Jessie Mansfield M.D. DATE OF PROCEDURE: 02/06/2021 PREOPERATIVE DIAGNOSIS: Left ureteropelvic junction stone. POSTOPERATIVE DIAGNOSIS: Left ureteropelvic junction stone. OPERATION: Extracorporeal shockwave lithotripsy. DESCRIPTION OF PROCEDURE: The patient was given general anesthesia. He is on the lithotripsy table. The position of the patient was adjusted, so the stone could be treated. Eventually received 2500 shocks. At the end of the treatment, the fragmentation of the stone appears complete. With that done, the procedure was terminated. The patient was moved to recovery room in stable condition. PLAN: He comes back as needed. JANINA / NAVEED /[id number]
== END 2021-02-06 09:55 | disposition home or self-care (01) ==
LOC: MW.SDS 06:32
PROVIDERS: ATTEND Urology
DX: N20.0 Calculus of kidney (principal); Z79.899 Other long term (current) drug therapy; E66.9 Obesity, unspecified; Z68.41 Body mass index [BMI] 40.0-44.9, adult
CPT/HCPCS: 50590; J0330; J0690; J1100; J1885; J2250; J2405; J2704; J3010; J3490; J7120; 00873

== ENCOUNTER 2021-02-10 03:35 | Emergency (ER) | payer OTHER ==
[2021-02-10] MEDS ORDERED: Ondansetron 4 MG/2 ML SDV IVPUSH ONE (04:01)
[2021-02-10] MEDS ORDERED: Sodium Chloride 0.9% 10 ML Syringe FLUSH PRN (04:01)
[2021-02-10] MEDS ORDERED: Ketorolac 15 MG/ML SDV IVPUSH ONE (04:01)
[2021-02-10] MEDS ORDERED: Sodium Chloride 0.9% 2.5 ML Syringe FLUSH PRN (04:01)
[2021-02-10] MEDS ORDERED: HYDROmorphone 1 MG/ML Syringe IVPUSH ONE (04:01)
[2021-02-10] MEDS ORDERED: Sodium Chloride 0.9% 1,000 ML IV ONE (04:01)
[2021-02-10 05:00] LABS: BLOOD UREA NITROGEN,BUN 19 mg/dL (7.0-18.0); CARBON DIOXIDE,CO2 26.9 mmol/L (21.0-32.0); CHLORIDE,CL 104 mmol/L (98-107); GLUCOSE RANDOM 158 mg/dL (74-106); POTASSIUM,K 4.2 mmol/L (3.5-5.1); SODIUM,NA 140 mmol/L (136-148)
--- NOTE | 2021-02-10 05:10 | EDM.PDOC ---
ED HPI GENERAL MEDICAL PROBLEM - General Chief Complaint: Genitourinary Problem Stated Complaint: KIDNEY STONE- SEVERE PAIN Time Seen by Provider: 02/10/21 03:58 - History of Present Illness INITIAL COMMENTS - FREE TEXT/NARRATIVE: HISTORY AND PHYSICAL: History of present illness: This is a 50-year-old gentleman who presents to the ER today secondary to pain to his left flank. Patient was recently diagnosed with a kidney stone and on he had lithotripsy under Dr. Lyons service. Patient reports he was doing well until this evening when he started developing severe pain to his left flank has been colicky in nature. Patient denies any recent fevers, shakes, chills. Patient is nauseous with 1 episode of vomiting. Patient denies any diarrhea. Patient denies any dysuria, frequency, urgency. Patient reports he does not have any medications at home for pain or discomfort. Review of systems: As per history of present illness and below otherwise all systems reviewed and negative. Past medical history: As per history of present illness and as reviewed below otherwise noncontributory. Surgical history: As per history of present illness and as reviewed below otherwise noncontributory. Social history: No reported history of drug or alcohol abuse. Family history: As per history of present illness and as reviewed below otherwise noncontributory. Physical exam: This patient was seen and evaluated during the 2019 SARS-CoV-2 novel coronavirus pandemic period. Community viral transmission is ongoing at time of this encounter and the emergency department is operating under pandemic response pro cedures. Constitutional: Patient is oriented to person, place, and time. Appears well- developed and well-nourished. No distress. HEENT: Moist mucous membranes Head: Normocephalic and atraumatic Eyes: Right eye exhibits no discharge. Left eye exhibits no discharge. No scleral icterus Neck: Normal range of motion. No tracheal deviation present. Cardiovascular: Normal rate and regular rhythm. Pulmonary: Effort normal, no respiratory distress. Abdominal: No distention Musculoskeletal: Normal range of motion Neurologic: Alert and oriented to person, place and time. Skin: Leaf, warm and dry. Psychiatric: Normal mood and affect. Behavior is normal. Judgment and thought content normal. Nursing note and vital signs have been reviewed Diagnostics: CBC, CMP within normal limits. Urinalysis: CT abdomen pelvis Therapeutics: Dilaudid, Zofran, NSS Assessment and plan: 50-year-old gentleman with recent history of kidney stones status post lithotripsy presents ER today complaining of pain to his left flank. Patient reports that the pain is significantly improved and patient has required percent more comfortable since arrival to the ED after receiving pain medicines here in the ER. CT scan reveals a moderate left hydronephrosis and moderate left hydroureter with a 5 mm calculus at the UVJ. Patient reports that during this episode he had an 11 mm stone that was lithotripsied. The 5 mm stone is likely residual of the stone that was broken up. Patient be discharged home with Percocet, ibuprofen, Zofran, Flomax. Patient has been instructed to call Dr. Lyons for follow-up appointment. Definitive disposition and diagnosis as appropriate pending reevaluation and review of above. left flank Pain Score (Numeric/FACES): 8 - Related Data Allergies Allergy/AdvReac Type Severity Reaction Status Date / Time No Known Allergies Allergy Verified 02/10/21 04:18 Home Meds: Home Meds Diclofenac Sodium 75 mg PO BID PRN 01/30/21 [History] Acetaminophen/oxyCODONE [Percocet 325-5 MG] 1 each PO Q6HR PRN #12 tab 02/10/21 [Rx] Ibuprofen 600 mg PO Q6HR PRN #30 tablet 02/10/21 [Rx] Ondansetron [Zofran ODT] 4 mg PO Q6H PRN #12 tab.dis 02/10/21 [Rx] Tamsulosin HCl [Flomax] 0.4 mg PO BEDTIME #7 cap.er.24h 02/10/21 [Rx] Past Medical History - Past Health History Medical/Surgical History: Denies Medical/Surgical History HEENT History: Reports: Other (See Below) Other HEENT History: wears glasses Cardiovascular History: Reports: None Respiratory History: Reports: Sleep Apnea Other Respiratory History: does not use CPAP Gastrointestinal History: Reports: None Genitourinary History: Reports: Renal Calculus Musculoskeletal History: Reports: Arthritis, Fracture Other Musculoskeletal History: fx both ankles, hx fx ribs, finger, toe & collarbone Neurological History: Reports: None Psychiatric History: Reports: None Endocrine/Metabolic History: Reports: Obesity/BMI 30+ Hematologic History: Reports: None Immunologic History: Reports: None Oncologic (Cancer) History: Reports: None Dermatologic History: Reports: None - Infectious Disease History Infectious Disease History: Reports: Chicken Pox - Past Surgical History Head Surgeries/Procedures: Reports: None HEENT Surgical History: Reports: None Cardiovascular Surgical History: Reports: None Respiratory Surgical History: Reports: None GI Surgical History: Reports: Appendectomy Male Surgical History: Reports: Kidney Stone Extraction Endocrine Surgical History: Reports: None Neurological Surgical History: Reports: None Musculoskeletal Surgical History: Reports: Shoulder Surgery, Other (See Below) Other Musculoskeletal Surgeries/Procedures:: Bilateral Ankles, Tumors removed off back, right RTCR Oncologic Surgical History: Reports: None Dermatological Surgical History: Reports: None Social & Family History - Family History Family Medical History: No Pertinent Family History - Tobacco Use Tobacco Use Status *Q: Unknown Ever Used Tobacco - Caffeine Use Caffeine Use: Reports: None ED ROS GENERAL - Review of Systems Review Of Systems: See Below ED EXAM, GENERAL - Physical Exam Exam: See Below Course - Vital Signs Last Recorded V/S: Last Vital Signs Temp 97.6 F 02/10/21 03:59 Pulse 79 02/10/21 05:18 Resp 18 02/10/21 03:59 BP 117/67 02/10/21 05:18 Pulse Ox 91 L 02/10/21 05:18 - Orders/Labs/Meds Orders: Active Orders 24 hr Category Date Time Status UA W/FLY RFLX IF INDICATED [URIN] Stat Lab 02/10/21 04:01 Ordered Sodium Chloride 0.9% [Saline Flush] Med 02/10/21 04:01 Active 10 ml FLUSH ASDIRECTED PRN Sodium Chloride 0.9% [Saline Flush] Med 02/10/21 04:01 Active 2.5 ml FLUSH ASDIRECTED PRN Saline Lock Insert [OM.PC] Stat Oth 02/10/21 04:01 Ordered Medication Orders Sodium Chloride (Sodium Chloride 0.9% 10 Ml Syringe) 10 ml FLUSH ASDIRECTED PRN PRN Reason: Keep Vein Open Last Admin: 02/10/21 04:32 Dose: 10 ml Documented by: SAADIA Sodium Chloride (Sodium Chloride 0.9% 2.5 Ml Syringe) 2.5 ml FLUSH ASDIRECTED PRN PRN Reason: Keep Vein Open Last Admin: 02/10/21 04:31 Dose: 2.5 ml Documented by: SAADIA Labs: Laboratory Tests 02/10/21 02/10/21 Range/Units 04:30 04:30 WBC 13.59 H (4.0-11.0) K/uL RBC 5.55 (4.50-5.90) M/uL Hgb 16.8 (13.0-17.0) g/dL Hct 48.5 (38.0-50.0) % MCV 87.4 (80.0-98.0) fL MCH 30.3 (27.0-32.0) pg MCHC 34.6 (31.0-37.0) g/dL RDW Std Deviation 42.7 (28.0-62.0) fl RDW Coeff of Luke 13 (11.0-15.0) % Plt Count 233 (150-400) K/uL MPV 9.20 (7.40-12.00) fL Neut % (Auto) 84.7 H (48.0-80.0) % Lymph % (Auto) 9.1 L (16.0-40.0) % Elliott % (Auto) 5.5 (0.0-15.0) % Eos % (Auto) 0.6 (0.0-7.0) % Baso % (Auto) 0.1 (0.0-1.5) % Neut # (Auto) 11.5 H (1.4-5.7) K/uL Lymph # (Auto) 1.2 (0.6-2.4) K/uL Elliott # (Auto) 0.8 (0.0-0.8) K/uL Eos # (Auto) 0.1 (0.0-0.7) K/uL Baso # (Auto) 0.0 (0.0-0.1) K/uL Nucleated RBC % 0.0 /100WBC Nucleated RBCs # 0 K/uL Sodium 140 (136-148) mmol/L Potassium 4.2 (3.5-5.1) mmol/L Chloride 104 (98-107) mmol/L Carbon Dioxide 26.9 (21.0-32.0) mmol/L BUN 19 H (7.0-18.0) mg/dL Creatinine 1.2 (0.8-1.3) mg/dL Est Cr Clr Drug Dosing 82.30 mL/min Estimated GFR (MDRD) > 60.0 ml/min Glucose 158 H (74-106) mg/dL Calcium 8.2 L (8.5-10.1) mg/dL Total Bilirubin 0.4 (0.2-1.0) mg/dL AST 12 L (15-37) IU/L ALT 33 (14-63) IU/L Alkaline Phosphatase 94 (46-116) U/L Total Protein 7.6 (6.4-8.2) g/dL Albumin 3.6 (3.4-5.0) g/dL Globulin 4.0 (2.6-4.0) g/dL Albumin/Globulin Ratio 0.9 (0.9-1.6) Meds: Medications Generic Name Dose Route Start Last Admin Trade Name Freq PRN Reason Stop Dose Admin Sodium Chloride 10 ml 02/10/21 04:01 02/10/21 04:32 Sodium Chloride 0.9% 10 Ml Syringe FLUSH 10 ml ASDIRECTED PRN Administration Keep Vein Open Sodium Chloride 2.5 ml 02/10/21 04:01 02/10/21 04:31 Sodium Chloride 0.9% 2.5 Ml Syringe FLUSH 2.5 ml ASDIRECTED PRN Administration Keep Vein Open Discontinued Medications Generic Name Dose Route Start Last Admin Trade Name Freq PRN Reason Stop Dose Admin Hydromorphone HCl 1 mg 02/10/21 04:01 02/10/21 04:29 Hydromorphone 1 Mg/Ml Syringe IVPUSH 02/10/21 04:02 1 mg ONETIME ONE Administration Sodium Chloride 1,000 mls @ 999 mls/hr 02/10/21 04:01 02/10/21 04:27 Normal Saline IV 02/10/21 05:01 999 mls/hr .Bolus ONE Administration Ketorolac Tromethamine 15 mg 02/10/21 04:01 02/10/21 04:27 Ketorolac 15 Mg/Ml Sdv IVPUSH 02/10/21 04:02 15 mg ONETIME ONE Administration Ondansetron HCl 4 mg 02/10/21 04:01 02/10/21 04:27 Ondansetron 4 Mg/2 Ml Sdv IVPUSH 02/10/21 04:02 4 mg ONETIME ONE Administration Departure - Departure Time of Disposition: 05:24 Disposition: Home, Self-Care 01 Condition: Good Clinical Impression: Hydroureter, left, Kidney stone - Discharge Information Instructions: Renal Colic, [id number] Referrals: Nito Preston MD [Primary Care Provider] - Forms: ED Department Discharge Additional Instructions: You were seen and evaluated in the ER today secondary to pain to your left side. The CT scan that we obtained reveals a 5 mm calculus at the junction of your ureter and your bladder. There is a moderate amount of swelling to your kidney and your ureter. You will be discharged to home with a prescription for ibuprofen, Percocet, Zofran, and Flomax. Please call to make an appointment to follow-up with Dr. Lyons. [facility] - Urology [address] [place] [id number] The following information is given to patients seen in the emergency department who are being discharged to home. This information is to outline your options for follow-up care. We provide all patients seen in our emergency department with a follow-up referral. The need for follow-up, as well as the timing and circumstances, are variable depending upon the specifics of your emergency department visit. If you don't have a primary care physician on staff, we will provide you with a referral. We always advise you to contact your personal physician following an emergency department visit to inform them of the circumstance of the visit and for follow-up with them and/or the need for any referrals to a consulting specialist. The emergency department will also refer you to a specialist when appropriate. This referral assures that you have the opportunity for follow-up care with a specialist. All of these measure are taken in an effort to provide you with optimal care, which includes your follow-up. Under all circumstances we always encourage you to contact your private physician who remains a resource for coordinating your care. When calling for follow-up care, please make the office aware that this follow-up is from your recent emergency room visit. If for any reason you are refused follow-up, please contact the [facility] Emergency Department at and asked to speak to the emergency department charge nurse. Sydney Carvajal [facility] - Primary Care [address] [place] [id number] [facility] [address] [place] [id number] Sepsis Event Note (ED) - Evaluation Sepsis Screening Result: No Definite Risk - Focused Exam Vital Signs: Vital Signs Temp Pulse Resp BP Pulse Ox 02/10/21 05:18 79 117/67 91 L 02/10/21 04:48 76 114/58 L 93 L 02/10/21 03:59 97.6 F 99 18 138/92 H 96 - My Orders Last 24 Hours: My Active Orders 02/10/21 04:01 UA W/FLY RFLX IF INDICATED [URIN] Stat Sodium Chloride 0.9% [Saline Flush] 10 ml FLUSH ASDIRECTED PRN Sodium Chloride 0.9% [Saline Flush] 2.5 ml FLUSH ASDIRECTED PRN Saline Lock Insert [OM.PC] Stat - Assessment/Plan Last 24 Hours: My Active Orders 02/10/21 04:01 UA W/FLY RFLX IF INDICATED [URIN] Stat Sodium Chloride 0.9% [Saline Flush] 10 ml FLUSH ASDIRECTED PRN Sodium Chloride 0.9% [Saline Flush] 2.5 ml FLUSH ASDIRECTED PRN Saline Lock Insert [OM.PC] Stat
--- NOTE | 2021-02-10 05:13 | CT ---
INDICATION: Left flank pain. Recent lithotripsy. COMPARISON: 06/13/2019 TECHNIQUE: CT examination of the abdomen and pelvis was performed without contrast enhancement using 2.5 mm thick axial sections from the lung bases through the pubic symphysis. Oral contrast was not administered. Please note that all CT scans at this facility use dose modulation, iterative reconstruction, and/or weight-based dosing when appropriate to reduce radiation dose to as low as reasonably achievable. FINDINGS: There is moderate left hydronephrosis and moderate left hydroureter button sewer by a 5 millimeter calculus at the UVJ. The previously seen 6 millimeter calculus located in the lower pole of the left kidney is no longer present. There is a 2 millimeter calculus in the lower pole of the left kidney. The previously seen cyst in the posterior interpolar left kidney is no longer evident. On the right, there is no sign of any nephrolithiasis, with resolution of the previously seen 4 millimeter calculus from the lower pole of the right kidney. In the abdomen, the unenhanced liver, spleen, pancreas, and adrenals are normal in appearance. The unenhanced kidneys are normal in appearance. The gallbladder is normal in appearance. The abdominal aorta is normal in caliber with no sign of dilatation. There is no sign of retroperitoneal mass or adenopathy. The stomach, loops of small bowel, and colon in the abdomen are normal in appearance. There is a small fat containing periumbilical hernia. In the pelvis, the appendix is nonvisualized, but there is no sign of an inflammatory process in the area of the appendix. Surgical clips are again seen at the base of the appendix from previous appendectomy. There is stable prominent sigmoid diverticulosis without evidence of diverticulitis. The loops of small bowel and colon in the pelvis are otherwise normal in appearance. The prostate is normal in appearance. A 2 millimeter tiny calculus is seen in the dependent portion of the urinary bladder at the midline consistent with recent passage of a calculus. Another tiny calculus is seen in the urinary bladder adjacent to the left UVJ. The urinary bladder is otherwise normal in appearance. There is no sign of pelvic or inguinal mass or adenopathy. There is no sign of free air or free fluid in the abdomen or pelvis. The lung bases are clear. The osseous structures are normal in appearance for the patient`s age. IMPRESSION: New moderate left hydronephrosis and moderate left hydroureter produced by a new 5 millimeter right UVJ calculus. Small 2 millimeter nonobstructive calculus in the dependent portion of the urinary bladder, as well as a tiny 2 millimeter calculus adjacent to the UVJ consistent with passage of previous calculus fragments. CT of the abdomen shows a 2 millimeter nonobstructive calculus fragment in the lower pole of the left kidney, decreased in size compared to the previous calculus seen in the left kidney. Resolution of the previously seen right lower pole calculus. CT of the pelvis shows no change in moderate sigmoid diverticulosis with no sign of diverticulitis. Stable small periumbilical fat containing hernia. Please note that all CT scans at this facility use dose modulation, iterative reconstruction, and/or weight-based dosing when appropriate to reduce radiation dose to as low as reasonably achievable. Dictated by Piotr Stevenson MD @ Feb 10 2021 4:59AM Signed by Dr. Piotr Stevenson @ Feb 10 2021 5:11AM
[2021-02-10] MEDS ORDERED: Tamsulosin 0.4 MG Cap.ER PO ONE (05:27)
== END 2021-02-10 05:42 | disposition home or self-care (01) ==
LOC: MW.ED 03:35
DX: N13.2 Hydronephrosis with renal and ureteral calculous obstruction (principal); E66.9 Obesity, unspecified; Z68.41 Body mass index [BMI] 40.0-44.9, adult; Z79.899 Other long term (current) drug therapy
CPT/HCPCS: 36415; 74176; 80053; 81001; 85025; 96374; 96375; 99284; A9270; J1170; J1885; J2405; J7030